=== PATIENT | female | born 1965 | race Caucasian/White ===

== ENCOUNTER 2018-09-24 13:39 | Outpatient (CLI) | payer OTHER | END 2018-09-24 13:40 | disposition home or self-care (01) | LOC: BICMAMMO 13:39 | PROVIDERS: ATTEND Family Medicine | DX: Z12.31 Encounter for screening mammogram for malignant neoplasm of breast (principal) | CPT/HCPCS: 77063; 77067 ==

== ENCOUNTER 2018-11-18 18:46 | Emergency (ER) | payer OTHER ==
[~2018-11-18 18:46] MED LIST: ISOVUE-370 76%-LOCM 1 ML ONE
[2018-11-18] MEDS ORDERED: Fluorescein Opthalmic Strip ONE (18:56)
[2018-11-18] MEDS ORDERED: Proparacaine 0.5% Opth 15 ML BOT ONE (18:56)
[2018-11-18] MEDS ORDERED: Lidocaine 4% Cream 5 GM TUBE w/ Tegaderm ONE (19:40)
[2018-11-18 19:53] LABS: #Basophils 0.1 thou/uL (0.0-0.2); #Eosinphils 0.1 thou/uL (0.0-0.7); #Lymphocytes 1.6 thou/uL (1.20-3.40); #Monocytes 0.5 thou/uL (0.11-0.59); #Neutrophils 3.5 thou/uL (1.40-6.50); %Basophils 1.2 % (0.0-1.0); %Lymphocytes 28.8 % (21.0-51.0); %Monocytes 8.3 % (0.0-10.0); %Neutrophils 60.7 % (42.0-75.0); Hemoglobin 14.1 g/dL (12.0-16.0); Mean Corpuscular HGB CONC 33.8 g/dL (32.0-36.0); Mean Corpuscular Hemoglobin 31.8 pg (27.0-31.0); Mean Corpuscular Volume 94.1 fL (78.0-98.0); Mean Platelet Volume 8.6 fL (7.4-10.4); Platelet Count 172 thou/uL (130-400); RBC Distribution Width 11.6 % (11.5-14.5); Red Blood Cell (RBC) Count 4.43 mill/uL (4.20-5.40); White Blood Cell (WBC) Count 5.7 thou/uL (4.8-10.8)
[2018-11-18 20:14] LABS: ALT (SGPT) 93 U/L (8-55); AST (SGOT) 50 U/L (5-34); Albumin 4.3 g/dL (3.5-5.0); Alkaline Phosphatase 160 U/L (40-150); Anion Gap 11 mmol/L (10-20); BUN (Urea Nitrogen) 17 mg/dL (9.8-20.1); Bilirubin, Total 1.5 mg/dL (0.2-1.2); Calc. Creatinine Clearance 0 mL/min (70-130); Calcium 9.9 mg/dL (7.8-10.44); Carbon Dioxide 29 mmol/L (22-29); Chloride 102 mmol/L (98-107); Estimated GFR-MDRD 43; Globulin 3.2 g/dL (2.4-3.5); Glucose 137 mg/dL (70-105); Potassium 4.4 mmol/L (3.5-5.1); Protein, Total 7.5 g/dL (6.0-8.3); Sodium 138 mmol/L (136-145)
--- NOTE | 2018-11-18 21:23 | CT ---
CT HEAD WITH AND WITHOUT CONTRAST WITH 3D RECONSTRUCTIONS: 11/18/18 HISTORY: Vision loss in right eye. Worsening in vision over the past few days. Sjogren's syndrome. The ventricular and cisternal system within normal limits. No signs of intracerebral hemorrhage or ex tra-axial fluid collections. The angiographic portion of this study yielded a good exam. The cavernou s portions of both internal carotid arteries are normal in appearance. The anterior and middle cerebr al arteries and their branches are normal. The right vertebral artery is dominant. The basilar artery and posterior cerebral arteries appear unremarkable. Orbit regions show symmetric appearing optic nerves. Extra-ocular muscles appear intact. Lacrimal gla nds are not enlarged. Retention cysts are seen within both maxillary sinuses. IMPRESSION: Unremarkable CT angio of brain. POS: [facility]
== END 2018-11-18 22:24 | disposition home or self-care (01) ==
LOC: ERS 18:46
DX: H53.47 Heteronymous bilateral field defects (principal); E03.9 Hypothyroidism, unspecified
CPT/HCPCS: 36415; 70496; 80053; 85025; Q9966

== ENCOUNTER 2018-12-07 09:35 | Outpatient (CLI) | payer OTHER ==
[2018-12-07] MEDS ORDERED: Gadobenate Dimeglumine 529 MG/1 ML (20ML VIAL) ONE (11:01)
--- NOTE | 2018-12-07 14:13 | MRI ---
PRE AND POST CONTRAST ENHANCED MRI BRAIN AND ORBITS: HISTORY: H53.4, R53.81, and R51. Also history of autoimmune disease, CVA, and abnormal eye exam. TECHNIQUE: Multiplanar, multisequence pre and post contrast enhanced MR images of the brain and orbits obtained. FINDINGS: Images demonstrate the brain to be unremarkable. No evidence of intracranial masses, hemorrhages, st rokes, or contusions seen. The ventricles are of normal size. No evidence of acute intracranial pat hology is seen. There are bilateral maxillary sinus mucus retention cysts. There is no evidence of optic nerve abnormality seen. No abnormal areas of intracranial enhancement are seen. No evidence of intraconal or extraconal abnormalities seen. The optic nerves are unremark able. IMPRESSION: Unremarkable pre and post contrast enhanced magnetic resonance imaging of brain and orbits. POS: [facility]
== END 2018-12-07 09:36 | disposition home or self-care (01) ==
LOC: MRI 09:35
PROVIDERS: ATTEND Family Medicine
DX: H53.40 Unspecified visual field defects (principal); R53.81 Other malaise; R51 Headache
CPT/HCPCS: 70553; A9577